=== PATIENT | female | born 1960 | race Asian ===

== ENCOUNTER 2022-04-11 04:26 | Day surgery (SDC) | payer OTHER ==
[2022-04-07 11:54] VITALS: BMI 25.9
[2022-04-11] MEDS ORDERED: LIDOCAINE VISCOUS 2% ORAL/TOP 15 ML UNIT-DOSE CUP ONE (11:56)
[2022-04-11 12:20] VITALS: TEMP 97.5
[2022-04-11 13:02] VITALS: BP 123/74; PULSE 58; RESP 14
== END 2022-04-11 13:11 | disposition home or self-care (01) ==
LOC: JASU-ENDO 04:26
PROVIDERS: ATTEND Internal Medicine Cardiovascular Disease
PROC: B246ZZ4 Ultrasonography of Right and Left Heart, Transesophageal (ICD-10-PCS; principal; 2022-04-11 12:00)
DX: G46.4 Cerebellar stroke syndrome (principal)
CPT/HCPCS: 93312; 93325